=== PATIENT | female | born 1990 | race Caucasian/White ===

== ENCOUNTER 2017-09-28 09:01 | Emergency (ER) | payer OTHER ==
[2017-09-28] MEDS ORDERED: NS 1,000 ML IV ONE ×2 (09:17→11:12)
--- NOTE | 2017-09-28 09:17 | EDPHY ---
H & P Stated Complaint: r abd/pelvic pain/tx bacterial vaginosous 2 wks ago/has us scheduled for 2p Time Seen by Provider: 09/28/17 09:13 HPI/ROS: HPI: This is a 26-year-old female who presents with Chief Complaint: r abd/pelvic pain/tx bacterial vaginosous 2 wks ago/has us scheduled for 2p Location: Right lower quadrant Quality: Sharp pain Duration: 2 week Signs and Symptoms: no fever, no nausea, no vomiting, no hematemesis, no blood in stool, no abdominal bloating, no diarrhea, no back pain, no urinary symptoms , no vaginal bleeding/discharge, no indigestion, no chest pain, no shortness of breath Timing: Worse last night Severity: 10/16 Context: Patient reports that she does not have regular menses since her at Mirena was placed 2 years ago at [facility]. She reports that 2 weeks ago she started to experience right lower quadrant pain, that is sharp in nature, [id number] in intensity and nonradiating. She went to her clinical pathologist who performed a pelvic exam and could not visualize her Mirena strings. She tested positive for bacterial vaginosis and was treated with oral Flagyl. Patient reports that after a few days the right lower quadrant pain decreased mildly. Last night, she had an increase in the intensity of the right lower quadrant pain that then radiated and burned into her suprapubic and left lower quadrant areas. She denies any fever/nausea/vomiting/diarrhea/urinary symptoms. She has no prior history of ovarian cyst/fibroids. She is eating and drinking normally. Her primary care provider actually has an ultrasound scheduled outpatient at 2 o'clock this afternoon but the patient reports that the pain is so intense that she could not wait. She is currently sexually active with the same partner for over 1 year. She normally has daily bowel movements. Last ate breakfast around 8:00 a.m. Modifying Factors: None Comment: ROS: see HPI Constitutional: No fever, no chills, no weight loss Eyes: No blurred vision Respiratory: No shortness of breath, no cough Cardiovascular: No chest pain, no palpitations Gastrointestinal: No nausea, no vomiting, no diarrhea, no hematemesis, no blood in stool Genitourinary: No dysuria, no blood in urine Extremities: No myalgias, no edema Neurologic: No weakness, no numbness Skin: No rashes, no petechiae Hematologic: No bruising, no bleeding MEDICAL/SURGICAL/SOCIAL HISTORY: Medical history: Generally healthy. Does not take any regular medications. Surgical history: Bilateral inguinal hernia surgery as an infant. Social history: Employed. Nonsmoker. Family history noncontributory. CONSTITUTIONAL: Polite and cooperative petite adult white female, awake and alert, no obvious distress HEENT: Atraumatic and normocephalic, PERRL, EOMI. Nares patent; no rhinorrhea; no nasal mucosal edema. Tympanic membranes clear. Oropharynx clear, no exudate and moist pink mucosa. Airway patent. No lymphadenopathy. No meningismus. Cardiovascular: Normal S1/S2, regular rate, regular rhythm, without murmur rub or gallop. PULMONARY/CHEST: Symmetrical and nontender. Clear to auscultation bilaterally. Good air movement. No accessory muscle usage. ABDOMEN: Soft, nondistended, moderate right lower quadrant tenderness, no rebound, no guarding, no peritoneal signs, no masses or organomegaly. No CVAT. EXTREMITIES: 2/2 pulses, strength 5/5, no deformities, no clubbing, no cyanosis or edema. NEUROLOGICAL: no focal neuro deficits. GCS 15. SKIN: Warm and dry, no erythema. no rash. Good capillary refill. Source: Patient Exam Limitations: No limitations - Personal History LMP (Females 10-55): IUD In Place Current Tetanus/Diphtheria Vaccine: Yes - Medical/Surgical History Hx Asthma: No Hx Chronic Respiratory Disease: No Hx Diabetes: No Hx Cardiac Disease: No Hx Renal Disease: No Hx Cirrhosis: No Hx Alcoholism: No Hx HIV/AIDS: No Hx Splenectomy or Spleen Trauma: No Other PMH: bilat inguinal hernia surg as - Social History Smoking Status: Never smoked Constitutional: Initial Vital Signs Temperature (C) 36.8 C 09/28/17 09:05 Heart Rate 87 09/28/17 09:05 Respiratory Rate 18 09/28/17 09:05 Blood Pressure 161/96 H 09/28/17 09:05 O2 Sat (%) 100 09/28/17 09:05 O2 Delivery Mode Room Air Allergies/Adverse Reactions: Penicillins Allergy (Verified 09/28/17 09:04) Home Medications: Medication Instructions Recorded MIRENA 05/23/18 Medical Decision Making - Diagnostics Imaging Results: Imaging Impressions Abdomen Ultrasound 09/28/17 09:17 Impression: Mildly thickened appendix measuring 6.4 mm corresponding to the region of pain, may represent early acute appendicitis. Findings and recommendations discussed with Emergency Department physician, Candis Chiu at 1130 hour, 09/28/2017. Final report concurs with initial preliminary interpretation. Pelvic/Renal Ultrasound 09/28/17 09:17 Impression: 1. IUD appears in good position. 2. No ovarian torsion, adnexal masses or significant free fluid. Findings and recommendations discussed with Emergency Department physician, Candis Chiu at 1130 hour, 09/28/2017. Final report concurs with initial preliminary interpretation. Abdomen CT 09/28/17 11:30 Impression: 1. Gas-filled, nonthickened appendix is low suspicion for acute appendicitis. 2. No other intra-abdominal pathology is identified. Findings were communicated by telephone with Dr. Candis Chiu at 09/28/2017 13 :00 ED Course/Re-evaluation: Labs, urinalysis, IV fluids, IV medications, pelvic ultrasound, right lower quadrant ultrasound ordered 0920: Patient given 1 L normal saline and IV morphine 4 mg 0955: Labs reviewed. No signs of leukocytosis/anemia/ANGELO/electrolyte imbalance /. Urinalysis shows pH 8 but no signs of infection, no signs of hematuria. 1130: Called by radiologist who advised that ultrasound shows IUD in good position, no ovarian torsion, no ovarian cyst. Appendix is measuring 6.5 mm with concern for early acute appendicitis. ED decision to consult General surgery. Spoke with Dr. Waite who is requesting CT of the abdomen and pelvis to further evaluate. 1245: Dr. Waite reviewed CT A/P scan via PAC and is now at patient's bedside. 1300: Called by Radiology who advised that CT abdomen and pelvis scan shows a normal appendix. Patient had a complete a pelvic exam with vaginal swabs obtained 2 weeks ago. She is requesting not to have a repeat pelvic exam in the emergency room as she wishes to follow up with her [employer] provider. 1320: Plan is for PO trial and then discharged home with outpatient follow-up with Dr. Waite and [employer]. 1414: Patient asking to be discharged home. Reports 3/10 pain which is tolerable for her. She politely declined any prescription pain medications. This patient was seen under the supervision of my secondary supervising physician. I evaluated care for this patient independently. Discussed this patient with Dr. Fagan who did not see the patient. Differential Diagnosis: Abdominal pain in a female including but not limited to ovarian cyst, pelvic inflammatory disease, ovarian torsion, urinary tract infection, IUD displacement and appendicitis. - Data Points Laboratory Results: Laboratory Results 09/28/17 09:22 09/28/17 09:22 09/28/17 09/28/17 09/28/17 10:06 09:22 09:22 WBC RBC Hgb Hct MCV MCH MCHC RDW Plt Count MPV Neut % (Auto) Lymph % (Auto) [place] % (Auto) Eos % (Auto) Baso % (Auto) Nucleat RBC Rel Count Absolute Neuts (auto) Absolute Lymphs (auto) Absolute Monos (auto) Absolute Eos (auto) Absolute Basos (auto) Absolute Nucleated RBC Immature Gran % Immature Gran # Sodium 144 mEq/L mEq/L (135-145) Potassium 4.4 mEq/L mEq/L (3.3-5.0) Chloride 107 mEq/L mEq/L (97-110) Carbon Dioxide 23 mEq/l mEq/l (22-31) Anion Gap 14 mEq/L mEq/L (8-16) BUN 17 mg/dL mg/dL (7-23) Creatinine 0.8 mg/dL mg/dL (0.6-1.0) Estimated GFR > 60 Glucose 93 mg/dL mg/dL (70-100) Calcium 10.0 mg/dL mg/dL (8.5-10.4) Beta HCG, Qual NEGATIVE Urine Color PALE YELLOW Urine Appearance HAZY Urine pH 8.0 H (5.0-7.5) Ur Specific [place] 1.006 (1.002-1.030) Urine Protein NEGATIVE (NEGATIVE) Urine Ketones NEGATIVE (NEGATIVE) Urine Blood NEGATIVE (NEGATIVE) Urine Nitrate NEGATIVE (NEGATIVE) Urine Bilirubin NEGATIVE (NEGATIVE) Urine Urobilinogen NEGATIVE EU EU (0.2-1.0) Ur Leukocyte Esterase NEGATIVE (NEGATIVE) Urine Glucose NEGATIVE (NEGATIVE) 09/28/17 09:22 WBC 8.38 10^3/uL 10^3/uL (3.80-9.50) RBC 5.04 10^6/uL 10^6/uL (4.18-5.33) Hgb 15.5 g/dL g/dL (12.6-16.3) Hct 44.9 % % (38.0-47.0) MCV 89.1 fL fL (81.5-99.8) MCH 30.8 pg pg (27.9-34.1) MCHC 34.5 g/dL g/dL (32.4-36.7) RDW 13.1 % % (11.5-15.2) Plt Count 277 10^3/uL 10^3/uL (150-400) MPV 10.1 fL fL (8.7-11.7) Neut % (Auto) 55.4 % % (39.3-74.2) Lymph % (Auto) 33.8 % % (15.0-45.0) [place] % (Auto) 8.9 % % (4.5-13.0) Eos % (Auto) 0.7 % % (0.6-7.6) Baso % (Auto) 1.0 % % (0.3-1.7) Nucleat RBC Rel Count 0.0 % % (0.0-0.2) Absolute Neuts (auto) 4.64 10^3/uL 10^3/uL (1.70-6.50) Absolute Lymphs (auto) 2.83 10^3/uL 10^3/uL (1.00-3.00) Absolute Monos (auto) 0.75 10^3/uL 10^3/uL (0.30-0.80) Absolute Eos (auto) 0.06 10^3/uL 10^3/uL (0.03-0.40) Absolute Basos (auto) 0.08 10^3/uL 10^3/uL (0.02-0.10) Absolute Nucleated RBC 0.00 10^3/uL 10^3/uL (0-0.01) Immature Gran % 0.2 % % (0.0-1.1) Immature Gran # 0.02 10^3/uL 10^3/uL (0.00-0.10) Sodium Potassium Chloride Carbon Dioxide Anion Gap BUN Creatinine Estimated GFR Glucose Calcium Beta HCG, Qual Urine Color Urine Appearance Urine pH Ur Specific [place] Urine Protein Urine Ketones Urine Blood Urine Nitrate Urine Bilirubin Urine Urobilinogen Ur Leukocyte Esterase Urine Glucose Medications Given: Discontinued Medications Sodium Chloride (Ns) 1,000 mls @ 0 mls/hr IV ONCE ONE; Wide Open PRN Reason: Protocol Stop: 09/28/17 09:18 Last Admin: 09/28/17 09:28 Dose: Not Given Sodium Chloride (Ns) 1,000 mls @ 0 mls/hr IV EDNOW ONE; Wide Open PRN Reason: Protocol Stop: 09/28/17 11:13 Last Admin: 09/28/17 11:59 Dose: 1,000 mls Morphine Sulfate (Morphine) 4 mg IVP EDNOW ONE Stop: 09/28/17 09:18 Last Admin: 09/28/17 09:28 Dose: Not Given Departure - Departure Disposition: Home, Routine, Self-Care Clinical Impression: RLQ abdominal pain Condition: Good Instructions: Acute Abdominal Pain (ED) Additional Instructions: Consume a minimum of 8-10 glasses of water or electrolyte fluid replacement drinks that include Gatorade, Powerade, Pedialyte. Eat a bland diet for the next 48 hours and then slowly advance as tolerated. Please follow-up with Dr. Waite per his recommendations. Follow up with OBGYN. Referrals: Nicho Waite MD [Medical Doctor] - As per Instructions
[2017-09-28 09:32] LABS: PLATELET COUNT 277 10^3/uL (150-400)
[2017-09-28] MEDS ORDERED: IOPAMIDOL (ISOVUE-300) 100 ML BTL ONE (12:02)
--- NOTE | 2017-09-28 13:18 | PDCONSULT ---
Plan Nurse Note: #[id number] Surgical consult dictated S MD Ravindra, FACS
--- NOTE | 2017-09-28 13:49 | GHP ---
[f rep st] PREOP HISTORY AND PHYSICAL DATE OF ADMISSION: 09/28/2017 CHIEF COMPLAINT: Abdominal pain. HISTORY OF PRESENT ILLNESS: The patient is a 26-year-old female with a 2-week history of abdominal p ain. Two weeks ago, patient was rock climbing and she noted left lower quadrant pain that resolved a fter she visited [facility] and received a course of Flagyl for bacterial v aginosis. After she completed the course of antibiotics, she returned to [place] and then noti lesley pain in the right lower quadrant and was advised to come to the emergency room for an ultrasound. This was performed after she was seen in the emergency room by Candis Chiu, which showed a 6.5 mm ap pendiceal tip suspicious for early appendicitis. Surgical consultation was requested. Patient reports the pain to be intermittent, right lower quadrant, exacerbated by exercise and not as sociated with food intake. There has been no associated nausea, vomiting, diarrhea, constipation, ch fredy in bowel habits. In the emergency department, laboratory studies were obtained, which showed a white blood cell count that was 8.3, her hematocrit was 44.9. Her urinalysis was negative. Beta HCG was negative. Laborat ory studies were unremarkable. PAST MEDICAL HISTORY: Significant for bilateral inguinal hernia repair at age 6 weeks. She has a hi story of BRCA mutation passed from her father side of the family. A maternal aunt had ovarian cancer . Patient's father has had prostate cancer. ALLERGIES: Allergy to penicillin. SOCIAL HISTORY: The patient is a nonsmoker. Denies significant alcohol use. She is a [place] nat[place] e and attended . Patient is accompanied by her boyfriend. She enjoys rock climbing. She is, othe rwise, physically active and normally healthy. FAMILY HISTORY: Significant for father with prostate cancer. Maternal aunt with ovarian cancer. REVIEW OF SYSTEMS: Denies nausea, vomiting, diarrhea, constipation, change in bowel habits, vaginal bleeding. The patient has an indwelling Mirena IUD. PHYSICAL EXAMINATION: GENERAL: Reveals a pleasant, articulate young woman who is in no acute distre ss. VITAL SIGNS: Blood pressure is 120/74, pulse is 80, respiratory rate is 18, O2 saturation is 98 %. Temperature is 36.8. HEENT: There is no scleral icterus. NECK: Supple without adenopathy. Th e trachea is midline. LUNGS: Clear. HEART: Regular in rate and rhythm. ABDOMEN: Soft with normo active bowel sounds. There is mild tenderness in the right inguinal region. No tenderness over McBu rney's point. No palpable mass. There is mild left lower quadrant tenderness. The patient has some shotty inguinal adenopathy on both sides and no palpable hernia recurrence. IMAGING DATA: Patient's imaging was reviewed and reveals a physiologic amount of fluid in the pelvis , normal-appearing gas-filled appendix without appendicolith. Ultrasound showed a visible appendicea l tip measuring 6.5 mm. Patient's IUD appears to be in normal position and there is no ovarian cyst or mass on CT. Formal pelvic ultrasound was not performed. IMPRESSION: 1. Abdominal pain of unclear etiology, not compatible with acute appendicitis clinically. 2. BRCA mutation without sequelae. Followed by Dr. Gavlez. 3. Recent bacterial vaginosis. 4. Indwelling intrauterine device. The patient was seen at [facility], and apparently, the intrauterine device string is no longer visible. RECOMMENDATIONS: Advance diet as tolerated. Symptomatic treatment of the patient's pain. Electrical [employer]r follo wup encouraged for reassessment and possible IUD removal if symptoms persist. /[id number]/MODL
[2017-09-28 14:13] VITALS: BP 114/63
== END 2017-09-28 14:24 | disposition home or self-care (01) ==
DX: R10.31 Right lower quadrant pain (principal); E86.9 Volume depletion, unspecified
CPT/HCPCS: Q9967